=== PATIENT | female | born 1960 | race Caucasian/White ===

== ENCOUNTER 2017-12-03 15:23 | Emergency (ER) | payer SELFPAY ==
[~2017-12-03] VITALS: Ht 162.6 cm; Wt 61.2 kg
--- NOTE | 2017-12-03 18:30 | NUR ---
PT AWAKE, ALERT, ORIENTED X2. AMBULATORY WITH STEADY GAIT AND WANTS TO GO HOME. VSS. AWARE.
--- NOTE | 2017-12-03 19:00 | NUR ---
Patient discharged to home in stable condition. Written and verbal after care instructions given. Patient verbalizes understanding of instruction.
[2017-12-03 19:33] VITALS: BP 118/71
== END 2017-12-03 19:35 | disposition home or self-care (01) ==
LOC: ER 15:25
DX: F10.129 Alcohol abuse with intoxication, unspecified (principal)
CPT/HCPCS: A4606; Z7610

== ENCOUNTER 2018-06-02 16:22 | Emergency (ER) | payer MEDICAID ==
[~2018-06-02] VITALS: Ht 165.1 cm; Wt 65.8 kg
[2018-06-02] MEDS ORDERED: IV NS 0.9% 1,000 ML BAG IV ONE (16:30)
[2018-06-02 16:45] LABS: BASOPHILS % (AUTO) 0.8 % (0.0-2.0); EOSINOPHILS % (AUTO) 0.2 % (0.0-6.0); HEMATOCRIT 48 % (33-45); HEMOGLOBIN 16.4 g/dL (11.5-14.8); LYMPHOCYTES # (AUTO) 1.7 /CMM (0.8-4.8); LYMPHOCYTES % (AUTO) 28.7 % (20.0-44.0); MEAN CORPUSCULAR HEMOGLOBIN 31 PG (26.0-33.0); MEAN CORPUSCULAR HGB CONC 34 g/dl (31.0-36.0); MEAN CORPUSCULAR VOLUME 92 fL (82-100); MONOCYTES # (AUTO) 0.3 /CMM (0.1-1.30); MONOCYTES % (AUTO) 4.5 % (2.0-12.0); NEUTROPHILS % (AUTO) 65.8 % (43.0-81.0); PLATELET COUNT (AUTO) 223 /CMM (150-450); RDW COEFFICIENT OF VARIATION 11.5 (11.5-15.0); RED BLOOD CELL COUNT(AUTO) 5.23 MIL/uL (4.0-5.2)
[2018-06-02 16:55] LABS: CALCIUM, SERUM 8.9 mg/dL (8.5-10.1); CARBON DIOXIDE 22 mmol/L (21-32); CHLORIDE 97 mmol/L (98-107); CREATININE 0.5 mg/dL (0.6-1.3); GLUCOSE 87 mg/dL (74-106); POTASSIUM 4.3 mmol/L (3.5-5.1); SODIUM SERUM 131 mmol/L (136-145); UREA NITROGEN, BLOOD 10 mg/dL (7-18)
[2018-06-02 17:03] LABS: ALANINE AMINOTRANSFERASE 56 U/L (12-78); ALBUMIN 4.1 g/dL (3.4-5.0); ALCOHOL, BLOOD 306 mg/dL (0-0); ALKALINE PHOSPHATASE 110 U/L (46-116); ASPARTATE AMINOTRANSFERASE 36 U/L (15-37); BILIRUBIN,DIRECT 0.1 mg/dL (0.0-0.2); BILIRUBIN,TOTAL 0.4 mg/dL (0.2-1.0); TOTAL PROTEIN, SERUM 7.6 g/dL (6.4-8.2)
[2018-06-02 17:04] LABS: ACETAMINOPHEN < 2 ug/ml (10-30); SALICYLATE 1.6 mg/dL (2.8-20.0)
[2018-06-02 17:31] VITALS: BP 123/80
--- NOTE | 2018-06-02 17:32 | NUR ---
[id number] FROM HOME FOR ETOH INTOXICATION, WANTS TO GO TO [facility]. NAD NOTED, VSS, RESP EVEN AND UNLABORED, PT WAS PUT ON THE MONITOR, WAITING FOR MD OLIVIA.
--- NOTE | 2018-06-02 17:32 | NUR ---
Patient discharged to home in stable condition. Written and verbal after care instructions given. Patient verbalizes understanding of instruction. IV removed. Catheter intact and site benign. Pressure and 4x4 applied to site. No bleeding noted.
== END 2018-06-02 18:27 | disposition home or self-care (01) ==
LOC: ER 16:23
DX: R41.82 Altered mental status, unspecified (principal); F10.129 Alcohol abuse with intoxication, unspecified; Y90.8 Blood alcohol level of 240 mg/100 ml or more
CPT/HCPCS: 36415; 80048-TC; 80076-TC; 85025-TC; A4606; G0480; J7030; Z7610

== ENCOUNTER → 2018-10-10 | Emergency (ER) | payer SELFPAY ==
[~2018-10-10] VITALS: Ht 165.1 cm; Wt 65.8 kg
[~2018-10-10] MED LIST: LORAZEPAM 1 MG TABLET ONE; LORAZEPAM 1 MG TABLET PO ONE
--- NOTE | 2018-10-10 20:05 | NUR ---
PT BIBA, FOR ETOH, VS STABLE, PLACED ON ER BED 14, SEEN BY ER EVELINE CARRENO FOR EVAL, TX ORDERS ENTERD, UA COLLECTED AND SENT TO LAB. AWAITING FOR FURTHER ORDERS.
[2018-10-10 21:20] LABS: BASOPHILS % (AUTO) 0.2 % (0.0-2.0); HEMATOCRIT 45 % (33-45); HEMOGLOBIN 15.5 g/dL (11.5-14.8); LYMPHOCYTES # (AUTO) 1.3 /CMM (0.8-4.8); LYMPHOCYTES % (AUTO) 14.9 % (20.0-44.0); MEAN CORPUSCULAR HGB CONC 34 g/dl (31.0-36.0); MEAN CORPUSCULAR VOLUME 93 fL (82-100); MONOCYTES # (AUTO) 0.3 /CMM (0.1-1.30); MONOCYTES % (AUTO) 3.7 % (2.0-12.0); NEUTROPHILS # (AUTO) 7.2 /CMM (1.8-8.9); NEUTROPHILS % (AUTO) 81.2 % (43.0-81.0); PLATELET COUNT (AUTO) 276 /CMM (150-450); RED BLOOD CELL COUNT(AUTO) 4.82 MIL/uL (4.0-5.2); WHITE BLOOD COUNT (AUTO) 8.9 K/uL (4.3-11.0)
[2018-10-10 21:33] LABS: CALCIUM, SERUM 8.5 mg/dL (8.5-10.1); CARBON DIOXIDE 18 mmol/L (21-32); CHLORIDE 98 mmol/L (98-107); CREATININE 0.5 mg/dL (0.6-1.3); GLUCOSE 97 mg/dL (74-106); POTASSIUM 4.2 mmol/L (3.5-5.1); SODIUM SERUM 136 mmol/L (136-145); UREA NITROGEN, BLOOD 12 mg/dL (7-18)
[2018-10-10 21:39] LABS: BILIRUBIN,URINE NEGATIVE (NEGATIVE); BLOOD, URINE 2+ Ery/uL (NEGATIVE); COLOR,URINE YELLOW (YELLOW); KETONES,URINE 2+ (NEGATIVE); LEUKOCYTE ESTERASE ,URINE 1+ (NEGATIVE); NITRITE, URINE NEGATIVE (NEGATIVE); PROTEIN,URINE NEGATIVE (NEGATIVE); UGLUCOSE NEGATIVE (NEGATIVE); UROBILINOGEN,URINE 0.2 EU/dL (0.2)
[2018-10-10 21:40] LABS: ALANINE AMINOTRANSFERASE 31 U/L (12-78); ALCOHOL, BLOOD < 3 mg/dL (0-0); ALKALINE PHOSPHATASE 107 U/L (46-116); ASPARTATE AMINOTRANSFERASE 22 U/L (15-37); BILIRUBIN,TOTAL 0.4 mg/dL (0.2-1.0); SALICYLATE < 0.2 mg/dL (2.8-20.0)
[2018-10-10 21:44] LABS: ALBUMIN < 0.6 g/dL (3.4-5.0)
[2018-10-10 21:50] LABS: APPEARANCE,URINE SLIGHTLY HAZY (CLEAR)
[2018-10-10 21:52] LABS: BACTERIA,URINE Few /HPF (None Seen); SQUAMOUS EPITHELIAL CELL,UR Few /HPF (None Seen)
[2018-10-10 22:00] LABS: ACETAMINOPHEN 0 ug/ml (10-30)
--- NOTE | 2018-10-10 23:03 | NUR ---
PSYCH CONSULT W/ART PSYCHIC.
--- NOTE | 2018-10-10 23:49 | NUR ---
Patient discharged to home in stable condition. Written and verbal after care instructions given. Tx and Rx given, Patient verbalizes understanding of instruction.
[2018-10-10 23:51] VITALS: BP 115/77
== END | disposition home or self-care (01) ==
LOC: ER 20:04
DX: N39.0 Urinary tract infection, site not specified (principal)
CPT/HCPCS: 36415; 80048; 80076; 80305; 80329; 81001; 85025; 87086; 93005; 99284; A4606; G0480 ×2; Z7610; 81000-TC